=== PATIENT | female | born 1965 | race Caucasian/White ===

== ENCOUNTER 2021-03-31 17:42 | Emergency (ER) | payer BC ==
[~2021-03-31] VITALS: Ht 170.2 cm; Wt 90.0 kg
--- NOTE | 2021-03-31 18:30 | PHYS DOC ---
General Adult EDM: Chief Complaint: FEVER HPI: HPI: Patient is a 55-year-old female presents with fever, weakness, cough since Tuesday. "I think my cough is more from drainage" patient states that 2 of her coworkers are also sick last week. Denies shortness of breath, chest pain, nausea or vomiting. Patient temperature arrival was 102.5. Last dose of Tylenol was at 1400. Patient states he has been having a hard time eating and drinking due to lack of appetite. Patient states she was tested for Covid on Tuesday at [facility] but has not received results yet. History of hypertension, fibromyalgia, lupus, arthritis, CKD. (ALONZO RODRIGUEZ APRN) Review of Systems: Review of Systems: ROS At least 10 ROS systems have been reviewed and are negative except as documented in the HPI. General: Negative except as outlined in HPI above. Skin: Negative except as outlined in HPI above. HEENT: Negative except as outlined in HPI above. Neck: Negative except as outlined in HPI above. Respiratory: Negative except as outlined in HPI above.. Cardiovascular: Negative except as outlined in HPI above. Abdomen: Negative except as outlined in HPI above. : Negative except as outlined in HPI above. Back/MSK: Negative except as outlined in HPI above. Neuro: Negative except as outlined in HPI above. Psych: Negative except as outlined in HPI above. (ALONZO RODRIGUEZ WATER QUALITY TECHNICIAN) Physical Exam: PE: Constitutional: Well developed, well nourished, no acute distress, non-toxic appearance. [] HENT: Normocephalic, atraumatic, bilateral external ears normal, oropharynx moist, no oral exudates, nose normal. [] Eyes: PERRLA, EOMI, conjunctiva normal, no discharge. [] Neck: Normal range of motion, no tenderness, supple, no stridor. [] Cardiovascular:Heart rate regular rhythm, no murmur [] Lungs & Thorax: Bilateral breath sounds clear to auscultation [] Abdomen: Bowel sounds normal, soft, no tenderness, no masses, no pulsatile masses. [] Skin: Warm, dry, no erythema, no rash. [] Back: No tenderness, no CVA tenderness. [] Extremities: No tenderness, no cyanosis, no clubbing, ROM intact, no edema. [] Neurologic: Alert and oriented X 3, normal motor function, normal sensory function, no focal deficits noted. [] Psychologic: Affect normal, judgement normal, mood normal. [] (ALONZO RODRIGUEZ APRN) EKG: EKG: [] (ALONZO RODRIGUEZ APRN) Radiology/Procedures: Radiology/Procedures: []EXAMINATION: Chest radiograph. VIEWS: Single view COMPARISON: None. INDICATION:55 years, Female, cough. FINDINGS: Normal cardiomediastinal silhouette. No focal consolidation. No pleural effusion or pneumothorax. No acute osseous process. IMPRESSION: No acute cardiopulmonary process. Electronically signed by: Ishaan Person MD (03/31/2021 6:48 PM) [facility] (ALONZO RODRIGUEZ APRN) Heart Score: C/O Chest Pain: No Risk Factors: Risk Factors: DM, Current or recent (<one month) smoker, HTN, HLP, family history of CAD, obesity. Risk Scores: Score 0 - 3: 2.5% MACE over next 6 weeks - Discharge Home Score 4 - 6: 20.3% MACE over next 6 weeks - Admit for Clinical Observation Score 7 - 10: 72.7% MACE over next 6 weeks - Early Invasive Strategies (ALONZO RODRIGUEZ APRN) Course & Med Decision Making: Course & Med Decision Making Pertinent Labs and Imaging studies reviewed. (See chart for details) [] 55-year-old female who presents with fever, weakness cough since Tuesday. Patient's work-up in the ER consisted of blood work, urinalysis, chest x-ray. Patient's treated with IV fluids, Motrin for fever. Patient's fever improved and is 99.8. Patient was tested for influenza a and B which both were negative. Patient was not tested for Covid due to having Covid test on Tuesday at [facility]. Patient still awaiting results. Chest x-ray was unremarkable. Discussed with patient all findings and diagnostics. Patient most likely has a viral syndrome that she was exposed to by coworkers last week. Discussed [id number] treatment at home. Motrin and Tylenol, Mucinex, increase fluids. Advised patient to follow-up with her PCP in the next 24 hours. Patient voiced her understanding and agreement with plan. Discussed return precautions in length. Patient is hemodynamically stable upon disposition. (ALONZO RODRIGUEZ APRN) Dragon Disclaimer: Dragon Disclaimer: This electronic medical record was generated, in whole or in part, using a voice recognition dictation system. (ALONZO RODRIGUEZ APRN) Attending Co-Sign The patient was seen and interviewed as well as examined at the bedside. The chart was reviewed. The case was discussed. Agree with the plan of care. (CHIARA ANGULO DO) Departure Departure: Impression: Primary Impression: Viral syndrome Additional Impression: Cough Disposition: HOME / SELF CARE / HOMELESS Condition: STABLE Referrals: JOSH STERLING MD (PCP) Patient Instructions: Cough, Adult, [id number], Fever, Adult Additional Instructions: You were seen in the emergency room for fever, and body aches. All of your labs and chest x-ray were unremarkable. Influenza test was negative. Your temperature on arrival was 102. You were treated with Motrin. Make sure you are alternating between Tylenol and Motrin to help with fever and body aches. Drink plenty of fluids and get rest. You most likely were exposed to a virus from your coworkers. It is going to take a few days for your symptoms to improve. Please follow-up with your PCP. Return to the emergency room if you have worsening symptoms or concerns. EMERGENCY DEPARTMENT GENERAL DISCHARGE INSTRUCTIONS Thank you for coming to [facility] (ED) today and trusting us with you care. We trust that you had a positivie experience in our Emergency Department. If you wish to speak to the department management, you may call the director at [phone]. YOUR FOLLOW UP INSTRUCTIONS ARE FOLLOWS: 1. Do you have a private Doctor? If you do not have a private doctor, please ask for a resource list of physicians or clinics that may be able to assist you with follow up care. 2. The Emergency Physician has interpreted your x-rays. The X-Ray specialist will also review them. If there is a change in the findings, you will be notified in 48 hours when at all possible. 3. A lab test or culture has been done, your results will be reviewed and you will be notified if you need a change in treatment. ADDITIONAL INSTRUCTIONS AND INFORMATION: 1. Your care today has been supervised by a physician who is specially trained in emergency care. Many problems require more than one evaluation for a complete diagnosis and treatment. We recommend that you schedule your follow up appointment as recommended to ensure complete treatment of you illness or injury. If you are unable to obtain follow up care and continue to have a problem, or if your condition worsens, we recommend that you return to the ED. 2. We are not able to safely determine your condition over the phone nor are we able to give sound medical advice over the phone. For these safety reasons, if you call for medical advice we will ask you to come to the ED for further evaluation. 3. If you have any questions regarding these discharge instructions please call the ED at [phone]. SAFETY INFORMATION: In the interest of safety, wellness, and injury prevention; we encourage you to wear your sealbelt, if you smoke; quite smoking, and we encourage family to use a protective helmet for bicycling and other sporting events that present an increased risk for head injury. IF YOUR SYMPTOMS WORSEN OR NEW SYMPTOMS DEVELOP, OR YOU HAVE CONCERNS ABOUT YOUR CONDITION; OR IF YOUR CONDITION WORSENS WHILE YOU ARE WAITING FOR YOUR FOLLOW UP APPOINTMENT; EITHER CONTACT YOUR PRIMARY CARE DOCTOR, THE PHYSICIAN WHOSE NAME AND NUMBER YOU WERE GIVEN, OR RETURN TO THE ED IMMEDIATELY. ALONZO RODRIGUEZ APRN Mar 31, 2021 18:30 CHIARA ANGULO DO Apr 01, 2021 05:57
--- NOTE | 2021-03-31 18:50 | RAD ---
EXAMINATION: Chest radiograph. VIEWS: Single view COMPARISON: None. INDICATION:55 years, Female, cough. FINDINGS: Normal cardiomediastinal silhouette. No focal consolidation. No pleural effusion or pneumothorax. No acute osseous process. IMPRESSION: No acute cardiopulmonary process. Electronically signed by: Ishaan Person MD (03/31/2021 6:48 PM) [facility]
[2021-03-31] MEDS: IBUPROFEN 600 MG TABLET. PO ONE (19:07)
[2021-03-31] MEDS: IV NORMAL SALINE 1,000ML 1,000 ML IV ONE (19:07)
[2021-03-31 19:12] VITALS: BP 110/73
[2021-03-31 19:18] LABS: BASO % 0 % (0-3); EOS % 0 % (0-3); HEMATOCRIT 40.3 % (36.0-47.0); HEMOGLOBIN 13.3 g/dL (12.0-15.5); LYMPH # 0.4 x10^3/uL (1.0-4.8); LYMPH % 11 % (24-48); MEAN CORPUSCULAR HEMOGLOBIN 29 pg (25-35); MEAN CORPUSCULAR HGB CONC 33 g/dL (31-37); MEAN CORPUSCULAR VOLUME 88 fL (79-100); MONO # 0.3 x10^3/uL (0.0-1.1); MONO % 8 % (0-9); NEUT % 80 % (31-73); PLATELET COUNT 111 x10^3/uL (140-400); RED BLOOD COUNT 4.61 x10^6/uL (3.50-5.40); RED CELL DISTRIBUTION WIDTH 13.8 % (11.5-14.5); WHITE BLOOD COUNT 3.7 x10^3/uL (4.0-11.0)
[2021-03-31 19:28] LABS: CALCIUM 8.7 mg/dL (8.5-10.1); CREATININE 1.2 mg/dL (0.6-1.0); GFR 46.8; POTASSIUM 3.7 mmol/L (3.5-5.1)
[2021-03-31 20:28] LABS: INFLUENZA A PATIENT NEGATIVE (NEGATIVE); INFLUENZA B PATIENT NEGATIVE (NEGATIVE)
[2021-03-31 20:30] LABS: BILIRUBIN,URINE NEG (NEG); CLARITY,URINE CLEAR; COLOR,URINE YELLOW; GLUCOSE,URINE NEG (NEG)
[2021-03-31 20:31] LABS: NITRITE,URINE NEG (NEG)
[2021-03-31 20:33] LABS: BACTERIA,URINE 0 /HPF (0-FEW); RBC,URINE 0 /HPF (0-2); SQUAMOUS EPITHELIAL CELL,UR MOD /LPF; WBC,URINE 0 /HPF (0-4)
== END 2021-03-31 20:53 | disposition home or self-care (01) ==
LOC: ER 17:42
DX: B34.9 Viral infection, unspecified (principal); R05.9 Cough, unspecified
CPT/HCPCS: 36415; 71045; 80048; 81001; 85025; 87804; 96360; 99284; J7030